=== PATIENT | female | born 1950 | race Caucasian/White ===

== ENCOUNTER 2018-11-07 15:21 | Inpatient (IN) | payer OTHER ==
[~2018-11-07] VITALS: Ht 160 cm; Wt 75.4 kg
[~2018-11-07 15:21] MED LIST: ACIDOPHILUS1 EAC3 PO; AMARYL4 MG PO; ANTACID500 MG PO; AZO1 EACH MC; DAPSONE25 MG PO; DIFLUCAN150 M1 PO; LANTUS SUBQ; NEXIUM40 MG PO; NORCO 5-325 TA1 EACH PO; PENICILLIN V P500 MG PO; PROTONIX40 M2 PO; TRAMADOL100 MG PO; ZESTRIL5 MG PO; ZOFRAN ODT4 MG PO
[2018-11-07 15:22] VITALS: BP 142/88
[2018-11-07 16:25] LABS: ABSOLUTE NEUTROPHILS 9.5 thou/uL (1.4-8.2); EOSINOPHILS 7.2 % (0.0-3.0); HEMATOCRIT 30.7 % (37.0-47.0); HEMOGLOBIN 10.3 gm/dL (12.0-15.0); LYMPHOCYTES 17.5 % (24.0-44.0); MCH 28.7 pg (26.0-34.0); MCHC 33.5 g/dL (28.0-37.0); MCV 85.8 fL (80.0-100.0); MONOCYTES 5.3 % (1.0-8.0); PLATELET COUNT 338 thou/uL (150-400); RBC 3.58 mil/uL (4.20-5.00); WBC 13.8 thou/uL (4.0-11.0)
[2018-11-07 16:36] LABS: ANION GAP 11 mmol/L (7-16); BUN 18 mg/dL (7-18); CALCIUM 8.5 mg/dL (8.5-10.1); CHLORIDE 98 mmol/L (98-107); CO2 27 mmol/L (21-32); CREATININE 1.4 mg/dL (0.6-1.0); GLUCOSE 302 mg/dL (74-106); POTASSIUM 3.4 mmol/L (3.5-5.1); SODIUM 136 mmol/L (136-145)
[2018-11-07 16:39] LABS: APTT 25.9 Seconds (24.5-32.8); PROTIME 9.9 Seconds (9.3-11.4)
[2018-11-07 16:42] LABS: ALBUMIN 3.6 g/dL (3.4-5.0); SGOT 19 U/L (15-37); SGPT 20 U/L (30-65); TOTAL BILIRUBIN 0.2 mg/dL (<0.1-1.0); TROPONIN-I <0.06 ng/mL (<0.06)
--- NOTE | 2018-11-07 16:45 | EKG ---
[place] [place] [address] ELECTROCARDIOGRAM REPORT Name: CHRISTIANO HIGGINS THERON Room #: REG [facility]#: [id number] ������������������ Admission: 11/07/18 ������������������ Attend Phys: Discharge: ������������������ Date of : 50 Report #: [id number] ����������������������������������������������������������������� [id number] THIS REPORT FOR: //name// [facility] ED Test Date: 2018-11-07 Test Time: 16:14:34 Pat Name: CHRISTIANO HIGGINS Department: Room: Gender: F Butcher Fish: ADDIE : 1950 Requested By: David Gaston Order Number: [id number] MD: Sergio Manzano Measurements Intervals [place] Rate: 103 P: 56 DE: 126 QRS: 30 QRSD: 96 T: 66 QT: 342 QTc: 448 Interpretive Statements Sinus tachycardia Low voltage, precordial leads Nonspecific T abnormalities, lateral leads Baseline wander in lead(s) I,aVL Compared to ECG 03/22/2012 10:28:23 Low QRS voltage now present T-wave abnormality now present Sinus rhythm no longer present Electronically Signed On 11-07-2018 16:45:29 CDT by Sergio Manzano [email or web address] ��������������������������������������������� <ELECTRONICALLY SIGNED> ���������������������������������������� By: Sergio Manzano MD ��������������������������������������������� 11/07/18 1645 1614 1614 Sergio Manzano MD /EPI
[2018-11-07 16:50] LABS: URINE BILIRUBIN NEGATIVE (Negative); URINE BLOOD NEGATIVE (Negative); URINE CLARITY CLEAR; URINE COLOR YELLOW; URINE GLUCOSE-RANDOM* 3+ (Negative); URINE KETONES NEGATIVE (Negative); URINE LEUKOCYTES-REFLEX NEGATIVE (Negative); URINE NITRITE-REFLEX NEGATIVE (Negative); URINE PROTEIN (DIPSTICK) TRACE (Negative); URINE UROBILINOGEN 0.2 E.U./dl (0.2-1.0)
[2018-11-07 16:53] LABS: AMP/METHAMP Negative (Negative); BARBITURATES Negative (Negative); BENZODIAZEPINES Negative (Negative); COCAINE Negative (Negative); METHADONE Negative (Negative); OPIATES Negative (Negative); PCP Negative (Negative)
[2018-11-07 18:17] LABS: CSF GLUCOSE 147 mg/dL (40-70); CSF PROTEIN 51 mg/dL (15-45)
[2018-11-07 18:39] LABS: CSF CLARITY CLEAR; CSF COLOR COLORLESS; CSF RBC 1 /mm3; CSF WBC 0 /mm3 (0-10); VOLUME 8 ml
[2018-11-07 19:02] LABS: BE(vivo) -1.2 mmol/L (-2 to +3); HCO3 24.9 mmol/L (22.0-26.0); PO2 VENOUS 27.4 mmHg (35.0-45.0)
[2018-11-07 21:38] VITALS: BP 144/75
--- NOTE | 2018-11-07 22:00 | NUR ---
Pt transported to MRI by me and RT. She was on propofol gtt for sedation. She woke up ,restless and agitated easily w/o any sedation. BP were elevated, HR became very tachy but remains in ST. Unable to take IV pump in MRI area. She was given total of 30 cc of propofol IVP during MRI procedure. She is well norma and stable during procedure. Tx to ICU with stable conditions.
[2018-11-07 22:37] LABS: BE(vivo) -2.2 mmol/L (-2 to +3); HCO3 21.7 mmol/L (22.0-26.0); PCO2 33.8 mmHg (35.0-45.0); PO2 316.6 mmHg (80.0-100.0); pH 7.426 (7.360-7.450); sO2 99.7 % (92.0-98.0)
--- NOTE | 2018-11-07 22:40 | NUR ---
VASCULAR ACCESS TEAM CONSULTED FOR CENTRAL LINE PLACEMENT. PT'S LABS,MEDS,HISTORY,ORDER AND CONSENT VERIFIED. PT ON VENT. PT DRAPED FOR MAX BARRIER PRECAUTIONS. LIJ WAS WIDELY PATENT WITH USG, 1% LIDOCAINE GIVEN SQ. 25CM 6FR JACC INSERTED IN LIJ, 7 CM EXTERNAL WITH BRISK BR. LINE SECURED. STAT CXR DONE
[2018-11-07 22:48] LABS: CALCIUM 7.9 mg/dL (8.5-10.1); CREATININE 1.1 mg/dL (0.6-1.0); POTASSIUM 3.5 mmol/L (3.5-5.1)
--- NOTE | 2018-11-07 22:56 | NUR ---
CXR CONFIRMED PLACEMENT RELEASED FOR IMMEDIATE USE PER PROTOCOL TO SHRUTHI ANDINO
[2018-11-07 23:07] VITALS: BP 135/76
[2018-11-07 23:09] LABS: TSH 0.872 uIU/mL (0.358-3.740)
[2018-11-08] VITALS (31 sets, daily range): BP systolic 106–181; BP diastolic 56–90
[2018-11-08 04:02] LABS: HEMATOCRIT 27.1 % (37.0-47.0); HEMOGLOBIN 8.8 gm/dL (12.0-15.0); MCH 28.1 pg (26.0-34.0); MCHC 32.4 g/dL (28.0-37.0); MCV 86.6 fL (80.0-100.0); RBC 3.13 mil/uL (4.20-5.00); RDW 13.8 % (10.5-14.5); WBC 11.8 thou/uL (4.0-11.0)
[2018-11-08 04:08] LABS: CALCIUM 8.1 mg/dL (8.5-10.1); CREATININE 1.1 mg/dL (0.6-1.0); MAGNESIUM 1.2 mg/dL (1.8-2.4); POTASSIUM 3.5 mmol/L (3.5-5.1)
[2018-11-08 05:15] LABS: BE(vivo) -3.7 mmol/L (-2 to +3); HCO3 20.1 mmol/L (22.0-26.0); PCO2 31.8 mmHg (35.0-45.0); PO2 113.3 mmHg (80.0-100.0); pH 7.419 (7.360-7.450); sO2 98.3 % (92.0-98.0)
--- NOTE | 2018-11-08 05:34 | NUR ---
PATIENT ARRIVED TO THE FLOOR FROM THE ED AROUND 2144. PATIENT IS ON THE VENTILATOR AND IS SEDATED. SEPSIS PROTOCOL INITIATED AND PATIENT PLACED ON INSULIN GTT. VS REMAINED STABLE THROUGHOUT THIS SHIFT AND NO DISTRESS NOTED.
[2018-11-08 13:08] LABS: BE(vivo) -2.5 mmol/L (-2 to +3); HCO3 22.2 mmol/L (22.0-26.0); PCO2 38.1 mmHg (35.0-45.0); PO2 148.3 mmHg (80.0-100.0); pH 7.384 (7.360-7.450); sO2 98.9 % (92.0-98.0)
--- NOTE | 2018-11-08 19:30 | NUR ---
SHIFT SUMMARY: PT PROGRESSED TODAY. SEE ASSESSMENTS FOR DETAILS. CPAP TRIAL PERFORMED, DR. HOFFMAN NOTIFIED OF ABG'S, EXTUBATED, PLACED ON 3L/NC- ALL WELL TOLERATED. PT INTERMITTENTLY ANXIOUS, RESTLESS, IRRITABLE, FRUSTRATED AND HAD A PANIC ATTACK. PT STUTTERING. WITH COAXING PT SYMPTOMS RESOLVED, THEN PT SPEAKING CLEARLY. SLEEPING WHEN UNDISTURBED. ST, PT REMOVED O2 AND TOLERATED ROOM AIR, MEI WITH LARGE AMOUNT URINE OUTPUT. SEVERAL FAMILY MEMBERS ROTATED IN AND OUT OF ROOM, UPDATED FAMILY CARES PROVIDED.
[2018-11-09] VITALS (19 sets, daily range): BP systolic 102–167; BP diastolic 59–86
[2018-11-09 02:12] LABS: HEMATOCRIT 28.2 % (37.0-47.0); HEMOGLOBIN 9.3 gm/dL (12.0-15.0); MCH 28.6 pg (26.0-34.0); MCV 86.7 fL (80.0-100.0); RBC 3.25 mil/uL (4.20-5.00); RDW 14.4 % (10.5-14.5); WBC 12.9 thou/uL (4.0-11.0)
[2018-11-09 02:25] LABS: CALCIUM 8.4 mg/dL (8.5-10.1); CREATININE 1.2 mg/dL (0.6-1.0); MAGNESIUM 2.1 mg/dL (1.8-2.4); POTASSIUM 3.8 mmol/L (3.5-5.1)
[2018-11-09 02:30] LABS: ALBUMIN 3.1 g/dL (3.4-5.0); CALCIUM 8.2 mg/dL (8.5-10.1); CREATININE 1.2 mg/dL (0.6-1.0); PHOSPHORUS 3.9 mg/dL (2.5-4.9); POTASSIUM 3.8 mmol/L (3.5-5.1)
--- NOTE | 2018-11-09 05:50 | NUR ---
ASSESSMENT: PT REMAIN ALERT AND ORIENT TIMES THREE. DOES GET RESTLESS FROM TIME TO TIME IN WHICH SHE BEGIN SPEAKING IN A LOW TONE, STUTTERS AND DOES RECOGNIZE THAT SHE IS NOT BEING HERSELF. THEN SHORTLY AFTERWARDS, SHE'S SEEMS BACK TO HERSELF. VSS, AFEBRILE. SR PER MONITOR. DENIES PAIN. DID HAVE ATIVAN EARLIER TIMES ONE. WHICH WAS EFFECTIVE AND PT DID SLEEP. HER MAIN CONCERN WAS THAT SHE WANTS TO SLEEP. AT TIMES SHE IS VERY RESTLESS, THRASHING IN THE BED, PULLING AT TUBING NOT TO PULL THINGS OUT BUT IN ATTEMPTS TO FIND REMOTE OR MOVE HER PILLOW. DR. MCCRACKEN WAS AT THE BEDSIDE EARLIER AND STATE THAT HE WOULD CONTINUE WITH ACYCLOVIR AND MEINIGITIS HAS BEEN RULED OUT. PENDING BLOOD CULTURES/CSF RESULTS. UO ADEQUATE, NO BM. LEFT IJ PATENT. SPUTUM CULTURE PENDING. SLOW PROGRESS TOWARDS DC GOALS. WILL CONTINUE TO MONITOR.
--- NOTE | 2018-11-09 16:05 | NUR ---
SHIFT SUMMARY: PT AWAKE AT SHIFT CHANGE, RESTLESS IN BED, REPOSITIONING FROM SIDE TO SIDE, LAYING ON HER STOMACH, PLACING HEAD AT FOOT OF BED. THEN UP IN CHAIR PER HER REQUEST. WITHIN MINUTES PT BECAME RESTLESS, IMPULSIVE, NOT WILLING TO REMAIN IN CHAIR, WANTING TO STAND, WALK AND GET BACK IN BED. RETURNED TO BED, STILL STILL RESTLESS, IMPULSIVE AND TRYING TO REMEMBER THE MED SHE TAKES WHEN SHE FEELS THIS WAY WHEN AT HOME. PER DISCUSSION WITH RN, IT WAS DETERMINED SHE NEEDED HER TRAMADOL. CALL PLACED TO DR. DAVIS TO REORDER HER HOME MEDS INCLUDING TRAMADOL. PT STATES SHE TAKES TRAMADOL FOR LOWER EXTREMITY NEUROPATHY, RESTLESS LEG SYNDROME AND HER CHRONIC BACK PAIN. "THE TRAMADOL TAKES CARE OF ALL THREE", SHE FURTHER STATED. WITHIN ONE HOUR OF TRAMADOL ADMINISTRATION, PT COOPERATIVE, CALMER, LESS IMPULSIVE, STATES SHE IS THINKING CLEARER THAN BEFORE (BUT NOT BACK TO HER NORMAL) AND GENERALLY REMAINING IN HER CHAIR. SR/ST, ROOM AIR, RESP EVEN AND UNLABORED, CONSUMED HER MEALS, MEI WITH ADEQUAATE URINE OUTPUT. MEI DC'D PER ORDER, THEN VOIDED X 1 (25CC) 20 MIN LATER. SPOUSE AND FAMILY MEMBERS IN ROOM PROVIDING SUPPORT TO PT. REPORT GIVEN TO SINA KINSEY. PT TRANSFERRED TO TELE RM #[id number] PER WHEELCHAIR. WELL TOLERATED.
--- NOTE | 2018-11-09 16:29 | HC ---
[facility] [place] [address] [address] CONSULTATION Name: CHRISTIANO HIGGINS Room #: 352-P ADM IN M.R.#: [id number] Admission: 11/07/18 ������������������ Attend Phys: Adan Swan MD Discharge: ������������������ Date of : 50 Report #: [id number] THIS REPORT FOR: //name// CC: JENNY physician/PCP Adan Swan REFERRING PHYSICIAN: Dr. Swan. REASON FOR REFERRAL: Acute respiratory failure. HISTORY OF PRESENT ILLNESS: The patient is a 68-year-old white female who presented to the ED with confusion, slurred speech and facial droop. She was subsequently intubated for imaging studies. A pulmonary consultation was requested. According to the family, the patient has had trouble with encephalopathy in the past when she was diagnosed with urinary tract infection. The patient is a retired nurse. She was in her usual state of health until yesterday when she became acutely confused. She then developed slurred speech, facial droop. She was then promptly brought to the Emergency Room within about 30 minutes. When she was seen in the ER, she was also febrile with temperature of 101.3 degrees Fahrenheit. Initially, the patient was felt to have CVA and Neurology were consulted. However, because of the febrile illness there were concerns for possible meningitis or encephalitis. The patient then underwent LP. Her lumbar puncture studies were grossly unremarkable. The patient then was taken to the MRI. Prior to that encephalopathy worsened where she had to be intubated to control the airway. The patient was then brought to the ICU. Since the arrival to the ICU, she has remained relatively stable. So far workup has been negative. This morning, she is awake, alert, tolerating CPAP trial. She was extubated. She is doing fairly well. She is following commands. PAST MEDICAL HISTORY: As mentioned above, history of encephalopathy associated urinary tract infection/sepsis, diabetes mellitus type 2, gastroesophageal reflux disease, hypertension, breast cancer, status post left mastectomy in 1988, past history of cervical spine surgery in 2010, tonsillectomy, right carpal tunnel surgery. ALLERGIES: NAPROXEN, WHICH CAUSES NAUSEA AND VOMITING, LATEX GLOVES, REACTIONS NOT SPECIFIED. HOME MEDICATIONS: Include recent administration of Pen-Vee K, hydrocodone, Zofran, Diflucan. She is also on Lantus, Amaryl, dapsone, calcium supplements, [address] [address] CONSULTATION Name: CHRISTIANO HIGGINS Room #: 352-P [facility] ..#: [id number] Admission: 11/07/18 ������������������ Attend Phys: Adan Swan MD Discharge: ������������������ Date of : 50 Report #: [id number] tramadol. FAMILY HISTORY: Noncontributory. SOCIAL HISTORY: The patient has smoked for many years, but quit several years ago. She is . Denies any alcohol use. REVIEW OF SYSTEMS: Deferred as the patient is mildly sedated. PHYSICAL EXAMINATION: GENERAL: She is awake, alert, following commands. She was just extubated. VITAL SIGNS: Temperature is 98.6 degrees Fahrenheit, yesterday temperature maximum was 101.8 degrees Fahrenheit, pulse is 90, respiratory rate is 16, blood pressure 140/78 mmHg, saturation 100%. HEENT: Normocephalic, atraumatic. NECK: Supple, without lymphadenopathy or thyromegaly. CHEST: Breath sounds are clear anteriorly without any rales or wheezes. CARDIOVASCULAR: Normal S1, S2. There are no murmurs or gallop. There is no JVD. There is no carotid bruit. Pulses are 2+/4+ bilaterally. ABDOMEN: Soft, nontender, no organomegaly or masses felt. GENITOURINARY: Deferred. RECTAL: Deferred. EXTREMITIES: There is no edema, cyanosis or clubbing. LABORATORY DATA: Portable chest x-ray is clear. ET tube is above the aleshia at approximately 3 cm. No infiltrates seen. CT head was unremarkable except for age-related findings. Urine drug screen was negative. Lactic acid is 3.8. CSF glucose was 147, protein was 51. Cell count was no WBC's, 1 RBC. Electrolytes on admission showed a creatinine of 1.4, sodium 136. The rest within normal limits. Liver enzymes are grossly unremarkable. WBC 13,900 without bandemia, lymphopenia is noted. Of note, eosinophil was 7.2%. Arterial blood gas revealed pH 7.38, pCO2 of 38, pO2 of 148. Cultures so far negative. IMPRESSION: 1. Acute febrile illness, encephalopathy in this 68-year-old white female. Suspect infectious source along with sepsis syndrome. Source of this infection is not clear at this time. Note the urinalysis was grossly unremarkable. 2. Acute hypoxic respiratory failure due to encephalopathy. Stable, post extubation. 3. Remote history of tobacco use. No history of chronic lung disease. 4. Acute kidney injury, likely related to sepsis. 5. Hypertension. 6. History of breast cancer, status post left mastectomy RECOMMENDATION: Overall, the patient did fairly well on CPAP trial. She was subsequently extubated. Saturation is adequate, keep saturation around 92%. [address] [address] CONSULTATION Name: CHRISTIANO HIGGINS Room #: 352-P ADM IN .R.#: [id number] Admission: 11/07/18 ������������������ Attend Phys: Adan Swan MD Discharge: ������������������ Date of : 50 Report #: [id number] Incentive spirometry will be added. Bronchodilators will be helpful given history of tobacco use. Agree with ongoing workup for febrile illness. DVT and GI prophylaxis recommended. Thank you for the consultation. ��������������������������������������������� <ELECTRONICALLY SIGNED> ���������������������������������������� By: John Arredondo MD ��������������������������������������������� 11/09/18 1629 1538 1321 John Arredondo MD /nt
--- NOTE | 2018-11-09 19:41 | NUR ---
PATIENT ADMITTED TO ROOM FROM ICU. SHE IS ALERT ORIENTED X4 WITH PERIODS OF CONFUSION. SHE WAS NOTED ATTEMPTING OT AMBULATE TO BATHROOM WITHOUT ASSISTANCE. REEDUCATED ON NEED TO CALL STAFF.
--- NOTE | 2018-11-10 00:25 | NUR ---
Assumed care at 1845. Pt restin in bed. AOX4 forgetfull at times. On Room air. Been ambulating to bathroom with x1 assist, walker and gait belt. Has a scheduled MRI/MRA of the spine today. L IJ dressing CDI. No identified needs at the moment. Call light within reach. Will continue to monitor.
[2018-11-10 04:55] VITALS: BP 173/91
[2018-11-10 05:17] LABS: HEMATOCRIT 26.1 % (37.0-47.0); HEMOGLOBIN 8.7 gm/dL (12.0-15.0); MCHC 33.2 g/dL (28.0-37.0); MCV 87.3 fL (80.0-100.0); RBC 2.99 mil/uL (4.20-5.00); WBC 10.2 thou/uL (4.0-11.0)
[2018-11-10 05:33] LABS: CALCIUM 8.3 mg/dL (8.5-10.1); CREATININE 1.1 mg/dL (0.6-1.0); POTASSIUM 3.9 mmol/L (3.5-5.1); TOTAL BILIRUBIN 0.2 mg/dL (<0.1-1.0); TOTAL PROTEIN 6.9 g/dL (6.4-8.2)
[2018-11-10 07:27] VITALS: BP 165/93
--- NOTE | 2018-11-10 09:31 | HC ---
[facility] [place] [address] CONSULTATION Name: CHRISTIANO HIGGINS Room #: 352-P ADM IN M.R.#: [id number] Admission: 11/07/18 ������������������ Attend Phys: Adan Swan MD Discharge: ������������������ Date of : 50 Report #: [id number] THIS REPORT FOR: //name// CC: JENNY physician/PCP Adan Swan DATE OF SERVICE: 11/07/2018 REASON FOR CONSULTATION: I was asked to evaluate concerning possible meningitis. HISTORY OF PRESENT ILLNESS: The patient is a 68-year-old who presented to the Emergency Room with acute onset of confusion, slurred speech and facial droop. Onset of symptoms was 30 minutes before arrival. She had been previously having a meal with her sister prior to her presentation. 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 I do not have any further information regarding this. She is a diabetic. Takes tramadol for pain and is on dapsone for unclear reasons. Following presentation to the Emergency Room, she had temperature of 38.8, hemodynamically was stable, though she is tachycardic. She was confused. Initial CT scan was clear. Chest x-ray was clear. Oxygen requirements were at 2 liters. She has had no travel. She, by history in the Emergency Room, has had no cardiopulmonary complaints. No visual changes. No GI or complaints. By the time I was able to evaluate her, she was intubated and sedated. Nursing notes no seizure activity. ALLERGIES: None known. MEDICATIONS: As noted on her MAR including insulin, Amaryl, dapsone, tramadol. She was given vancomycin, ampicillin, ceftriaxone, acyclovir and dexamethasone in the Emergency Room. PAST MEDICAL HISTORY: Frequent falls and ataxia, gastroesophageal reflux, diabetes, chronic kidney disease, celiac disease, breast cancer, left mastectomy, cervical spine surgery, cholecystectomy, right carpal tunnel surgery, tonsillectomy. FAMILY HISTORY: Noncontributory. SOCIAL HISTORY: Does drink alcohol. Nonsmoker. REVIEW OF SYSTEMS: Unable to gain any more information other than what is described above as a 10-point review. PHYSICAL EXAMINATION: [facility] [address] [place] [address] CONSULTATION Name: CHRISTIANO HIGGINS Room #: 352-P [facility] IN .R.#: [id number] Admission: 11/07/18 ������������������ Attend Phys: Adan Swan MD Discharge: ������������������ Date of : 50 Report #: [id number] VITAL SIGNS: Temperature was 38.8, heart rate 121, respiratory rate 20, blood pressure 142/80. SKIN: Without rash or decubitus. No palpable adenopathy. NECK: Supple. HEENT: Pupils were equal, round and reactive to light. Sclerae was nonicteric. Mouth was intubated. No lesions identified. LUNGS: Clear. HEART: Regular, without murmur, gallop or rub. It was tachycardic. ABDOMEN: Soft, obese, nontender. No hepatosplenomegaly or mass. GENITOURINARY: She was incontinent of urine. EXTREMITIES: Without cyanosis, clubbing or edema. She did move all extremities. Unable to assess mood. LABORATORY STUDIES: Chest x-ray was clear. CT of the head negative. CSF examination: Glucose 147, protein 51, 0 WBCs, 1 RBC, lactate 3.8. Drug screen negative. Urinalysis negative. Sodium 136, potassium 3.4, bicarbonate 27, creatinine 1.4. Liver function test normal. Blood glucose 352. Troponin negative. Procalcitonin negative. Hemoglobin 10.3, WBC 13.8, platelet count 338,000. Differential was unremarkable. Blood, sputum culture pending. MRI scan being done currently. IMPRESSION: Acute encephalopathy with dysarthria, low-grade fever, leukocytosis in the setting of diabetes, chronic kidney disease and baseline ataxia. Thus far, source of infection is not evident. She does have fever along with mild leukocytosis and a lactate of 3.8; however, her procalcitonin was normal and no evidence of pulmonary, GI or infection at this point. Still possible we are dealing with acute stroke and aspiration, although chest x-ray was clear and on intubation did not find any increased secretions. Central fever also considered. Viral etiology or occult bacteremia considered. RECOMMENDATIONS: We will continue ceftriaxone and acyclovir until further information back from an MRI scan. Check MRI scan, serial laboratory studies, viral respiratory panel. The patient will be monitored in the Intensive Care Unit. Adjustments in her medications will be done following further information from her studies. ��������������������������������������������� <ELECTRONICALLY SIGNED> ���������������������������������������� By: Abelardo Escamilla MD ��������������������������������������������� 11/10/18 0931 31 1543 Abelardo Escamilla MD /nt
[2018-11-10 11:18] VITALS: BP 150/88
--- NOTE | 2018-11-10 12:04 | HC ---
[facility] [place] [address] [address] CONSULTATION Name: CHRISTIANO HIGGINS Room #: 352-P ADM IN M.R.#: [id number] Admission: 11/07/18 ������������������ Attend Phys: Adan Swan MD Discharge: ������������������ Date of : 50 Report #: [id number] THIS REPORT FOR: //name// CC: JENNY physician/PCP Adan Swan DATE OF SERVICE: 11/07/2018 HISTORY OF PRESENT ILLNESS: This is a 68-year-old female patient who was evaluated by me in the Emergency Room. The patient usually lives with her . He is not here and there are two family members here. As I understand, the patient was with her sister the whole day. She was fine around 10:00. The sister told me that she initially noticed that the patient had some speech difficulty around 01:30, but then, they have also given the different times in that regard. She also has cognitive impairment that time. Her speech became somewhat better, but she continued to have severe agitation. She is able to talk. She is very delusional. She does not follow any commands. She moves all four extremities, but she is constantly agitated. At one time, somebody has noticed some facial weakness, but it is not clear, which side it was and now that is not there. The symptoms are rather sudden in onset around 01:30 p.m. today. REVIEW OF SYSTEMS: Positive for multiple problems. She is a diabetic. She had a prior cervical spine surgery. There is no documented hypoglycemia. The blood sugar here in the Emergency Room is more than 300. Her baseline status is that she is able to drive and she is cognitively intact. She had a prior breast cancer. She had a carpal tunnel syndrome surgery, the best sister and family knows she has not been asked to start any medication recently. MEDICATIONS: List here does include tramadol. PHYSICAL EXAMINATION: I could not examine the patient except she talks, but she does not follow any commands, but she has a speech. She is extremely agitated, has not laid still for us to do anything and she is very delusional also. LABORATORY DATA: Her white count is elevated at 13.8. Her kidney problem is there, but she has a known renal problem. Her GFR is only 37. IMPRESSION: This is a very difficult case to decide what to do. She has this symptom, which appeared to be acute in onset. That will raise the possibility of stroke. Timing is not clear, but the sister indicates that it was around 01:30. The other problem is her white count is up and she is running temperature. That raise the possibility of MOGUL OPERATOR infection, but the atypical feature is that the infections usually does not come that fast. [facility] [address] [place] [address] CONSULTATION Name: CHRISTIANO HIGGINS THERON Room #: 352-P ADM IN M.R.#: [id number] Admission: 11/07/18 ������������������ Attend Phys: Adan Swan MD Discharge: ������������������ Date of : 50 Report #: [id number] She was able to do the CT scan of the head and that does not show any acute abnormality. She does have chronic changes on the CT, but the family indicated that she was cognitively intact before this happened. I discussed the situation with the patient and Emergency Room physician. I discussed with him that because of the acute onset, the possibility of stroke still need to be considered, but I cannot confirm that. The other diagnosis is MOGUL OPERATOR infection. The atypical feature is it usually does not come that fast, but the patient has increased white count as well as temperature. The treatment of the stroke is going to be problem if a spinal tap is done and I discussed that with the family. If the patient's symptoms started at 01:30, she is outside the window for a TPA. She is outside the window for TPA for 3 hours and it is getting there. It is probably outside the window for 4-1/2 hours because it will be difficult to arrange that. We are facing further problem because her kidney is a problem. She has a known kidney disease according to the family and her GFR is only 37. We were going to go ahead and do CT angiogram of the head and neck with perfusion to see if we can localize any perfusion deficit. The problem with that is that can hurt her kidneys and it may not even give us the answer. The other option was to take her down for a stat MRI. The problem with that is the family says she is claustrophobic and have difficult time doing an MRI even usual condition and at this time, we cannot even do the MRI because she is so agitated that she will not even lay still for even few seconds. The family referred me to the patient's for more questions about the medical history, but the they tell me will not be available for another half an hour. I told them I will stay in the hospital and that they should page me as soon as he comes. It is an extremely difficult situation. I am still concerned about the stroke in this patient, but I cannot rule out MOGUL OPERATOR infection either because of the above. I do not know what to do as well as stroke is concerned and even if it is a stroke. She is so agitated and so much thrashing around that the chances of running, we cannot make her even still for a few seconds and the chances of getting into complication from TPA is going to be high especially if they have to intubate him and they may very well have to intubate him, especially if she keeps being so agitated before we can get any further workup done. If she is intubated, then we can get an MRI done, but with this kind of history and it is almost 4-1/2 hours since the onset of the symptoms, I am not sure what can we do and the best will be to stay conservative in this patient, but I would like to get the testing done if possible and I will go back and try to talk to the patient's and see if we can reach the and make a plan and we will continue to make a better [facility] [address] [place] [address] CONSULTATION Name: CHRISTIANO HIGGINS THERON Room #: 352-P ADM IN M.R.#: [id number] Admission: 11/07/18 ������������������ Attend Phys: Adan Swan MD Discharge: ������������������ Date of : 50 Report #: [id number] effort on timing in this patient. We will dictate an addendum from talk to the and able to make a more definite plan. ��������������������������������������������� <ELECTRONICALLY SIGNED> ���������������������������������������� By: Conrad Rao MD ��������������������������������������������� 11/10/18 1204 1751 1432 Conrad Rao MD /nt
--- NOTE | 2018-11-10 12:05 | EEG ---
[facility] [place] [address] ELECTROENCEPHALOGRAM Name: CHRISTIANO HIGGINS Room #: 352-P ADM IN M.R.#: [id number] ������������������ Admission: 11/07/18 ������������������ Attend Phys: Adan Swan MD Discharge: ������������������ Date of : 50 Report #: [id number] ����������������������������������������������������������������� [id number] THIS REPORT FOR: //name// CC: JENNY physician/PCP Adan Swan DATE OF SERVICE: 11/07/2018 ELECTROENCEPHALOGRAM REPORT TECHNIQUE: This patient's EEG was done by placing the electrodes by standard 10-20 system of electrode placement. Both referential and sequential montages were used for recording. Background activity in this patient's EEG goes up to about 9 Hz and 30 microvolt. It is intermixed with theta range slowing on both sides. Photic stimulation is unremarkable. No active epileptiform activity was noticed. IMPRESSION: This patient's EEG demonstrates intermixed theta range slowing on both sides. That is a nonspecific abnormality which can occur with encephalopathy, effect of psychotropic medication, dementia, etc. No active epileptiform activity was noticed during this record. Alpha coma cannot be excluded. ���������������������������������������� <ELECTRONICALLY SIGNED> ���������������������������������������� By: Conrad Rao MD ��������������������������������������������� 11/10/18 1205 0825 1031 Conrad Rao MD /nt
[2018-11-10 14:26] VITALS: BP 150/88
--- NOTE | 2018-11-10 14:34 | NUR ---
INITIAL ASSESSMENT/DISCHARGE NOTE: Received consult. JACKIE reviewed chart and spoke with nursing and attending physician. Pt was admitted from home due to altered mental status. Pt was transferred to from ICU and is medically stable for discharge home today with HH services. JACKIE met with pt, spouse and family at bedside. Introduced role of SW. Pt is alert/orientated. Pt states that she and her spouse live in a house in [place]. Prior to admission, pt was independent with ADLs. Pt does have a cane and walker to use at home. JACKIE discussed need for HH services and provided options for HH agencies. Pt requests to have referral sent to [facility], as her is currently on service with [facility].. SW confirmed pt's home address and phone number. Pt's PCP is Dr. Francisco Wyatt at [facility]. supply planner to fax info and orders to [facility]. Contact info for [facility] placed in pt's discharge summary. SW provided pt with info for [facility] per her request. Pt's family to provide transportation home. No additional SW needs identified at this time, but is available to assist should needs arise.
--- NOTE | 2018-11-10 14:42 | NUR ---
rachel sent Home Health referral to [facility] along with dc paperwork, dp sent text to Yahaira at [facility] letting her know and that patient carolina Smith as her nurse, also that [facility] with [facility].
--- NOTE | 2018-11-10 15:01 | NUR ---
assumed patient care at 0700. a/o x4. restless in am. moved from chair to frances. getting better when fanily are here. progressing towards poc golas. dc to home with hh.
[2018-11-10 15:09] LABS: CSF VDRL Non Reactive (Non Rea:<1:1)
== END 2018-11-10 15:12 | disposition home health service (06) | DRG 208 ==
LOC: ER 15:21 → 3W 18:13 → EROBS 18:13 → ICU 19:58 → 3W 11-09 16:26
PROVIDERS: Emergency Medicine; Hospitalist; Internal Medicine Pulmonary Disease; Psychiatry & Neurology Neuromuscular Medicine; Specialist; ADMIT Internal Medicine
PROC: 0BH17EZ Insertion of Endotracheal Airway into Trachea, Via Natural or Artificial Opening (ICD-10-PCS; principal; 2018-11-07)
PROC: 009U3ZX Drainage of Spinal Canal, Percutaneous Approach, Diagnostic (ICD-10-PCS; principal; 2018-11-07)
PROC: 5A1935Z Respiratory Ventilation, Less than 24 Consecutive Hours (ICD-10-PCS; 2018-11-08)
DX: J96.01 Acute respiratory failure with hypoxia (principal); G93.40 Encephalopathy, unspecified; N17.9 Acute kidney failure, unspecified; N18.4 Chronic kidney disease, stage 4 (severe); K21.9 Gastro-esophageal reflux disease without esophagitis; I12.9 Hypertensive chronic kidney disease with stage 1 through stage 4 chronic kidney disease, or unspecified chronic kidney disease; E11.22 Type 2 diabetes mellitus with diabetic chronic kidney disease; N18.9 Chronic kidney disease, unspecified; R26.9 Unspecified abnormalities of gait and mobility; R47.1 Dysarthria and anarthria; G25.81 Restless legs syndrome; R27.0 Ataxia, unspecified; E83.42 Hypomagnesemia; Z91.81 History of falling; Z87.891 Personal history of nicotine dependence; Z85.3 Personal history of malignant neoplasm of breast; Z90.12 Acquired absence of left breast and nipple; Z90.49 Acquired absence of other specified parts of digestive tract; Z79.4 Long term (current) use of insulin; Z79.899 Other long term (current) drug therapy; Z88.8 Allergy status to other drugs, medicaments and biological substances; Z91.040 Latex allergy status
CPT/HCPCS: 10078; 10879

== ENCOUNTER 2019-07-27 13:33 | Inpatient (IN) | payer OTHER ==
[~2019-07-27] VITALS: Ht 160 cm; Wt 68.0 kg
[2019-07-27 13:34] VITALS: BP 190/110
[2019-07-27 14:53] LABS: ABSOLUTE NEUTROPHILS 9.6 thou/uL (1.4-8.2); BASOPHILS 0.5 % (0.0-2.0); EOSINOPHILS 0.2 % (0.0-3.0); HEMATOCRIT 33.3 % (37.0-47.0); LYMPHOCYTES 9.5 % (24.0-44.0); MCH 30.8 pg (26.0-34.0); MCV 93.5 fL (80.0-100.0); MONOCYTES 5.2 % (1.0-8.0); PLATELET COUNT 258 thou/uL (150-400); POLYS 84.6 % (36.0-66.0); RBC 3.56 mil/uL (4.20-5.00); WBC 11.4 thou/uL (4.0-11.0)
[2019-07-27 15:04] LABS: ANION GAP 11 mmol/L (7-16); BUN 30 mg/dL (7-18); CALCIUM 10.4 mg/dL (8.5-10.1); CHLORIDE 110 mmol/L (98-107); CO2 25 mmol/L (21-32); CREATININE 1.3 mg/dL (0.6-1.0); GLUCOSE 200 mg/dL (74-106); POTASSIUM 5.3 mmol/L (3.5-5.1); SODIUM 146 mmol/L (136-145)
--- NOTE | 2019-07-27 15:07 | EKG ---
[address] [place] [address] ELECTROCARDIOGRAM REPORT Name: RONALDOCHRISTIANO Room #: [facility].#: [id number] Admission: Attend Phys: Discharge: Date of : 50 Report #: [id number] THIS REPORT FOR: //name// [facility] ED Test Date: 2019-07-27 Test Time: 13:46:12 Pat Name: CHRISTIANO HIGGINS Department: Room: Gender: F Capacity Analyst: KF : 1950 Requested By: Magda Jackson Order Number: [id number] MD: Josep Lane Measurements Intervals [place] Rate: 95 P: 69 MT: 133 QRS: 20 QRSD: 76 T: 51 QT: 329 QTc: 414 Interpretive Statements Sinus rhythm Low voltage, extremity and precordial leads Compared to ECG 11/07/2018 16:14:34 Sinus tachycardia no longer present T-wave abnormality no longer present Electronically Signed On 07-27-2019 15:07:16 CYTOPATHOLOGY TECHNOLOGIST by Josep Lane [email or web address] <ELECTRONICALLY SIGNED> By: Josep Lane MD 07/27/[address] MD /[place]
[2019-07-27 15:12] LABS: TROPONIN-I <0.06 ng/mL (<0.06)
[2019-07-27 16:22] VITALS: BP 155/83
[2019-07-27 16:39] VITALS: BP 155/83
[2019-07-27 17:04] VITALS: BP 146/77
[2019-07-27 17:50] LABS: CHOLESTEROL 113 mg/dL (<200); HDL CHOLESTEROL 38 mg/dL (>40); LDL CHOLESTEROL 56 mg/dL (<100); TRIGLYCERIDE 96 mg/dL (<150); VLDL 19 mg/dL (<40)
[2019-07-27 17:54] LABS: SERUM ASSESSMENT Clear
[2019-07-27] MEDS ORDERED: LANTUS SUBQ (18:06)
[2019-07-27] MEDS ORDERED: HUMALOG100 UNIT/1 SUBQ (18:07)
[2019-07-27] MEDS ORDERED: TYLENOL325 M1 PO (18:09)
[2019-07-27] MEDS ORDERED: NORCO 5-325 TA1 EAC1 PO (18:10)
[2019-07-27] MEDS ORDERED: CLOBETASOL PROP50 G1 TOP (18:14)
[2019-07-27 18:15] LABS: TSH 1.1 uIU/mL (0.358-3.740)
[2019-07-27] MEDS ORDERED: GLUCOTROL10 MG PO (18:15)
[2019-07-27] MEDS ORDERED: PROTONIX40 M2 PO (18:17)
[2019-07-27] MEDS ORDERED: DAPSONE25 MG PO (18:17)
[2019-07-27] MEDS ORDERED: TOPAMAX100 MG PO (18:18)
[2019-07-27] MEDS ORDERED: KEPPRA 500 MG500 MG PO (18:19)
[2019-07-27] MEDS ORDERED: VITAMIN D3 COM1 EACH PO (18:21)
[2019-07-27] MEDS ORDERED: PLAVIX 75 MG TA75 MG PO (18:22)
[2019-07-27] MEDS ORDERED: VITAMIN D3500 UNIT/5 PO (18:22)
[2019-07-27] MEDS ORDERED: CYMBALTA60 MG PO (18:23)
[2019-07-27] MEDS ORDERED: PRINIVIL10 MG PO (18:24)
[2019-07-27] MEDS ORDERED: FOLIC ACID1 MG PO (18:24)
[2019-07-27] MEDS ORDERED: LIPITOR 10 MG10 M1 PO (18:25)
[2019-07-27] MEDS ORDERED: LIPITOR40 MG PO (18:26)
--- NOTE | 2019-07-27 18:38 | NUR ---
Patient arrived approx. 1645 to room 362. Maintenance fluids started. Patient family at bedside to collect hx. Dr. Ames and Jessica, FITNESS/WELLNESS DIRECTOR were at bedside to assess patient and discuss plan with family. Tele monitor applied. Pt up to commode max assist. Pt mainly incontinent. Nurse aide to apply female external cath. Will continue to monitor.
[2019-07-27 19:37] LABS: URINE BILIRUBIN NEGATIVE (Negative); URINE BLOOD NEGATIVE (Negative); URINE CLARITY CLEAR; URINE COLOR YELLOW; URINE GLUCOSE-RANDOM* NEGATIVE (Negative); URINE KETONES NEGATIVE (Negative); URINE LEUKOCYTES-REFLEX TRACE (Negative); URINE NITRITE-REFLEX NEGATIVE (Negative); URINE PROTEIN (DIPSTICK) NEGATIVE (Negative); URINE SPECIFIC GRAVITY 1.025 (1.005-1.035)
[2019-07-27 19:45] VITALS: BP 132/54
[2019-07-27 20:01] VITALS: BP 138/68
[2019-07-28] VITALS (8 sets, daily range): BP systolic 125–169; BP diastolic 54–76
--- NOTE | 2019-07-28 06:43 | NUR ---
Pt. drowsy at beginning of shift then only oriented to person. Once she woke up fully she was able to state her name,mercedesay,she's at [facility] though she thinks it is December 2019. Pt. has been reoriented. C/o generalized pain when she woke. Pain med given with good relief. She has been repositioned for comfort. She rested well during the night. She requested for snack when she took her pain med and ate yoghurt.SCD's in place. Left arm sling in place. Bed alarm on. Will continue to monitor.
[2019-07-28 07:10] LABS: ABSOLUTE NEUTROPHILS 5.3 thou/uL (1.4-8.2); BASOPHILS 0.6 % (0.0-2.0); EOSINOPHILS 2.6 % (0.0-3.0); HEMATOCRIT 27.5 % (37.0-47.0); HEMOGLOBIN 9.2 gm/dL (12.0-15.0); LYMPHOCYTES 26.3 % (24.0-44.0); MCH 31.4 pg (26.0-34.0); MCHC 33.4 g/dL (28.0-37.0); MCV 94.2 fL (80.0-100.0); MONOCYTES 9.1 % (1.0-8.0); PLATELET COUNT 218 thou/uL (150-400); POLYS 61.4 % (36.0-66.0); RBC 2.92 mil/uL (4.20-5.00); RDW 13.8 % (10.5-14.5); WBC 8.6 thou/uL (4.0-11.0)
[2019-07-28 07:24] LABS: CALCIUM 9.4 mg/dL (8.5-10.1); CREATININE 1.1 mg/dL (0.6-1.0); MAGNESIUM 1.6 mg/dL (1.8-2.4); POTASSIUM 3.8 mmol/L (3.5-5.1)
--- NOTE | 2019-07-28 15:12 | NUR ---
INITIAL ASSESSMENT: Received consult. SW reviewed chart and spoke with nursing and attending physician. Pt was admitted from [facility] due to AMS. Neuro consulted. Pt with hx of CVA. Pt with left humerus fracture. SW met with pt and family at bedside. Introduced role of SW. Pt was resting during time of SW visit. Pt's family states that pt is currently in the skilled unit at [facility]. Family states that pt will most likely be staying at [facility] for custodial care. Pt was living at home with her son. Pt uses a walker. Plan is for pt to return to [facility] when medically stable. SW is following to assist as needed with discharge planning.
--- NOTE | 2019-07-28 17:44 | NUR ---
assumed care of pt at 0700. pt aox3 in no acute distress. complains of pain to fx shoulder, finding good relief with hydrocodone. incontinent of urine - ext female cath in place. vitals stable. no need for mri per neuro - abnormal ct findings due to recent stroke. pt seen by ortho - orders received. no plans for surgery at this time. small appetite. long acting insulin held this am - physician aware. will cont to monitor.
[2019-07-29 03:35] VITALS: BP 157/72
--- NOTE | 2019-07-29 03:48 | NUR ---
Pt. has been alert and oriented except to month and day. C/o hurting all over, hydrocodone given with good relief. She has been repositioned for comfort. Left arm immobilizer in place. SCD's on. Female ext. cath in place otherwise incontinent. SCD's in place. Making progress towards care plan goals.
[2019-07-29 07:20] VITALS: BP 132/63
[2019-07-29 11:43] VITALS: BP 147/76
--- NOTE | 2019-07-29 13:31 | NUR ---
DISCHARGE PLANNING. PATIENT ADMITTED FROM [facility]. PLAN IS FOR PATIENT TO DISCHARGE BACK TO [facility] ONCE MEDICALLY READY. PATIENT CLINICAL REFERRAL FAXED TO [facility], VERIFIED RECEIVED. CALL PLACED TO ADMISSIONS TO NOTIFY. UNABLE TO REACH ADMISSIONS STAFF AT THIS TIME. UNIT SW AWARE.
[2019-07-29] MEDS ORDERED: HYDROCODON-ACE1 EAC7 PO (13:46)
[2019-07-29] MEDS ORDERED: TOPAMAX 100 MG100 MG PO (13:46)
[2019-07-29] MEDS ORDERED: MOBIC7.5 MG PO (13:46)
--- NOTE | 2019-07-29 14:46 | NUR ---
SW reviewed chart and spoke with nursing and attending physician. Pt is progressing towards goals for discharge. information systems planner faxed clinical and therapy updates to [facility] earlier today. Facility submitted for insurance authorization today. Anticipate pt will discharge back to the facility in 1-2 days. SW met with pt at bedside to provide update. Pt is aware and agreeable with plan. Pt left voice message for pt's to provide update as well. SW updated attending physician. SW is following to assist as needed with discharge planning.
[2019-07-29 15:30] VITALS: BP 148/71
--- NOTE | 2019-07-29 17:21 | NUR ---
ASSUMED CARE OF PT AT 0700. PT AOX3, LETHARGIC, WITHDRAWN, BUT COOPERATIVE WITH CARE. SEEN BY OT AND PT. UP TO CHAIR FOR MEALS. PAIN CONTROLLED WITH CURRENT MED REGIMEN. VERY SMALL APPETITE. SUGARS TREATED CONSERVATIVELY DUE TO MINIMAL APPETITE. ANTICIPATE D/C TOMORROW TO LTC.
[2019-07-29 19:50] VITALS: BP 137/67
--- NOTE | 2019-07-30 00:30 | NUR ---
PATIENT ASSESSED AND IS ALERT X 2-3. SKIN WARM AND DRY. RESP EVEN AND UNLABORED. HAS LEFT SHOULDER IN IMMOBILIZER FROM FRACTURE. ELEVATED ON PILLOW. HAS GOOD COLOR IN FINGERS. PAIN MEDICATION GIVEN FOR PAIN AT 2017. HAS A POOR APPETITE. WAS CONFUSED ON ASSESSMENT" TALKED ABOUT THOSE BOYS AND THANKSGIVING DINNER" REORIENTATED TO SELF AND PLACE. RIGHT HAND IV THAT INFUSING WELL. LOOKS HEALTHY.IS WITHDRAWN AT TIMES. DID TALK TO HER DAUGHTER JAG. TELE- SHOWS NSR. LUNGS DISM. REPOSITIONED ON RIGHYT SIDE. REFUSED AT 0000. HAS A FEMALE PURWICK CATH THAT HAS YELLOW URINE RETURN. HAS NO SKIN ISSUES. IV FLUIDS INFUSING WELL. SLEEPS WELL THROUGHT THE NIGHT SO FAR. DENIES ANY PAIN AT PRESENT AT 0000. CONT PLAN OF CARE.
[2019-07-30 04:38] VITALS: BP 140/64
[2019-07-30 07:30] VITALS: BP 125/69
[2019-07-30 11:26] VITALS: BP 127/60
[2019-07-30] MEDS ORDERED: PEPCID20 MG PO (13:17)
--- NOTE | 2019-07-30 13:55 | NUR ---
DISCHARGE NOTE: SW reviewed chart and spoke with nursing and attending physician. Pt is medically stable for discharge back to [facility] today. Facility obtained insurance authorization. Wheelchair van transportation scheduled for 1300. Pt had episode of chest pain prior to time of discharge. Transportation rescheduled for 1600 per facility's arrangements. EKG to be done. SW met with pt and family at bedside to provide update. All aware and in agreement with discharge plan. Chart copy completed. production planner faxed discharge orders/summary to [facility]. No additional SW needs identified at this time, but is available to assist should needs arise.
[2019-07-30 15:26] VITALS: BP 147/86
--- NOTE | 2019-07-31 14:22 | EKG ---
[address] [address] ELECTROCARDIOGRAM REPORT Name: CHRISTIANO HIGGINS Room #: [facility] DIS IN M.R.#: [id number] Admission: 07/27/19 Attend Phys: Nicky Ames MD Discharge: 07/30/19 Date of : 50 Report #: [id number] THIS REPORT FOR: //name// [facility] Test Date: 2019-07-30 Test Time: 13:37:00 Pat Name: CHRISTIANO HIGGINS Department: Room: [facility] Gender: F Syrup Maker: [place] ELMORE : 1950 Requested By: Nicky Ames Order Number: [id number] MD: Josep Lane Measurements Intervals [place] Rate: 86 P: 72 MT: 129 QRS: 31 QRSD: 73 T: 54 QT: 357 QTc: 427 Interpretive Statements Sinus rhythm Low voltage, extremity leads Compared to ECG 07/27/2019 13:46:12 No significant changes Electronically Signed On 07-31-2019 14:21:39 PATIENT CASE COORDINATOR by Josep Lane [email or web address] <ELECTRONICALLY SIGNED> By: Josep Lane MD 07/31/[address] MD /EPI
--- NOTE | 2019-08-03 11:46 | EEG ---
[facility] [place] [address] ELECTROENCEPHALOGRAM Name: CHRISTIANO HIGGINS Room #: 362-P [facility] IN M.R.#: [id number] Admission: 07/27/19 Attend Phys: Nicky Ames MD Discharge: 07/30/19 Date of : 50 Report #: [id number] THIS REPORT FOR: //name// [facility] DATE OF SERVICE: 07/28/2019 The patient is being evaluated for altered mental status. EEG was done by placing the electrode by standard 10-20 system of electrode placement. Both sequential and referential montages were used for recording. The patient's EEG is slow in generalized fashion. It is about 8 Hz and 30 microvolts, but it is intermixed with slowing on both sides. Slowing is somewhat more prominent on the right side as compared to the left side. The patient went to sleep and that is associated with bilateral slowing and the vertex sharp waves. Photic stimulation was unremarkable. There were no active epileptiform activity was noticed. IMPRESSION: This patient's EEG is slow in generalized fashion. That is a nonspecific finding, which can occur with encephalopathy, effect of psychotropic medication, dementia, etc. EEG is more slow on the right side as compared to the left side. A right-sided lesion should be excluded in that regard. Thank you very much for this referral. <ELECTRONICALLY SIGNED> By: Conrad Cline MD 08/03/19 1146 1315 1332 Conrad Cline MD /brii
== END 2019-07-30 17:44 | DRG 562 ==
LOC: ER 13:33 → 3W 17:01
PROVIDERS: Emergency Medicine; Nurse Practitioner; ADMIT Hospitalist
DX: S42.302A Unspecified fracture of shaft of humerus, left arm, initial encounter for closed fracture (principal); G92 Toxic encephalopathy; G93.6 Cerebral edema; N17.9 Acute kidney failure, unspecified; N18.4 Chronic kidney disease, stage 4 (severe); I69.354 Hemiplegia and hemiparesis following cerebral infarction affecting left non-dominant side; E87.0 Hyperosmolality and hypernatremia; W18.39XA Other fall on same level, initial encounter; E11.22 Type 2 diabetes mellitus with diabetic chronic kidney disease; I12.9 Hypertensive chronic kidney disease with stage 1 through stage 4 chronic kidney disease, or unspecified chronic kidney disease; E78.5 Hyperlipidemia, unspecified; M54.2 Cervicalgia; G89.29 Other chronic pain; M54.9 Dorsalgia, unspecified; R29.6 Repeated falls; K90.0 Celiac disease; I16.0 Hypertensive urgency; E87.5 Hyperkalemia; R63.4 Abnormal weight loss; F32.9 Major depressive disorder, single episode, unspecified; R51 Headache; E11.42 Type 2 diabetes mellitus with diabetic polyneuropathy; Z79.4 Long term (current) use of insulin; Z79.891 Long term (current) use of opiate analgesic; Y93.89 Activity, other specified; Y92.012 Bathroom of single-family (private) house as the place of occurrence of the external cause; Y99.8 Other external cause status; Z79.899 Other long term (current) drug therapy; Z88.8 Allergy status to other drugs, medicaments and biological substances; Z91.040 Latex allergy status; Z90.10 Acquired absence of unspecified breast and nipple; Z90.89 Acquired absence of other organs; Z90.49 Acquired absence of other specified parts of digestive tract; Z99.3 Dependence on wheelchair; Z87.891 Personal history of nicotine dependence; Z68.26 Body mass index [BMI] 26.0-26.9, adult
CPT/HCPCS: 10879

== ENCOUNTER 2020-02-25 14:23 | Inpatient (IN) | payer OTHER ==
[2020-02-25] VITALS (9 sets, daily range): BP systolic 79–128; BP diastolic 31–59
[~2020-02-25] VITALS: Ht 157.5 cm; Wt 62.7 kg
--- NOTE | ~2020-02-25 | EEG ---
[facility] [place] [address] ELECTROENCEPHALOGRAM Name: CHRISTIANO HIGGINS Room #: 245-P ADM IN M.R.#: [id number] Admission: 02/25/20 Attend Phys: Adan Swan MD Discharge: Date of : 50 Report #: [id number] THIS REPORT FOR: //name// CC: [facility] DATE OF SERVICE: 02/26/2020 This patient is being evaluated for altered mental status. EEG was done by placing the electrode by standard 10-20 system of electrode placement. The patient did not cooperate and there was a lot of artifact. Background activity appeared to be about 5-6 Hz and 30 microvolt. This is symmetrical activity. Photic stimulation is unremarkable. IMPRESSION: Very poor quality EEG because the patient did not cooperate. It appeared to be showing ____ is slow and poorly formed. That is a nonspecific abnormality, which can occur with dementia, encephalopathy, effect of psychotropic medication, etc. Clinical correlation is recommended. By: [id number] 1541 Conrad Cline MD /nt
--- NOTE | ~2020-02-25 | HC ---
[facility] [place] [address] CONSULTATION Name: CHRISTIANO HIGGINS Room #: 245-P ADM IN M.R.#: [id number] Admission: 02/25/20 Attend Phys: Adan Swan MD Discharge: Date of : 50 Report #: [id number] THIS REPORT FOR: cc: Jesika Sequeira MD,Jesika Cline,Conrad Cuellar MD ~ CC: Adan Sequeira DATE OF SERVICE: 02/25/2020 HISTORY OF PRESENT ILLNESS: This is a 69-year-old female patient who was evaluated by me as a stroke protocol. I talked to Dr. Schwab, the Emergency Room physician multiple times. I talked to the daughter numerous times. I talked to the donor floor technician and I talked to Dr. Swan, the radiologist. This patient was admitted with acute altered mental status. She is pretty much out. At one time, she became somewhat more conscious and according to Dr. Schwab, she was able to squeeze with the right hand. On my repeated examination, she did not do anything for me. She did not move anything. REVIEW OF SYSTEMS: Is from the daughter. She tells me that this patient had a large stroke on the right parietal area. She has residual weakness on the left side. On top of that, she had multiple musculoskeletal problems including spine problem. I went back and reviewed all her records here in the computer and in fact she has seen even Neurosurgery here. Her ambulation difficulty is poor. When I talked to her about making decisions about her and the fact that she cannot make medical decisions for herself and she has to do it. She came up with the information that she was not competent to make a decision. Even her baseline indicating that she was developing dementia. She has by record stage IV chronic kidney disease. She had tonsillectomy. She had hypertension. She has a history of breast cancer, diabetes and the records indicate she has been noncompliant. She has a history of celiac disease, right carpal tunnel syndrome, C-spine problem. She was admitted here in 2019 for encephalopathy and she had a pretty eventful course that time and those records indicate that she was admitted to another hospital with encephalopathy. Her history of seizure is very unclear. She has seen Dr. Saldana in the past and that indicate that the patient at one time was on 2 seizure medication. She denied that she ever had a seizure. 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 Presently, she apparently on Depakote, but I am not sure what she is on or whether it is for behavior problem or for seizure. She is on multiple other medications. Her blood sugar here is 135. I do not know what the blood sugar was when this episode happened. This was her relevant 14-point review of system, which was carried out because of the time constraint. PAST MEDICAL HISTORY: Positive for numerous things, looks like she had a big stroke in the past. She has dementia in the past from the history I get. She [facility] [address] [place] [address] CONSULTATION Name: CHRISTIANO HIGGINS Room #: 245-P ADM IN M.R.#: [id number] Admission: 02/25/20 Attend Phys: Adan Swan MD Discharge: Date of : 50 Report #: [id number] has a history of seizures in the past. The significant finding here was that her blood pressure was running low that was a 90 systolic, temperature was 97.3, respiration was only 15, pulse was 98. Blood gases are being done, but are not done yet. Her potassium was a trace high at 5.3. Her BUN and creatinine are high, but that is her baseline. IMPRESSION: This is a pretty complicated case and we spent a lot of time to decide for the diagnosis and I had multiple discussions with the patient's daughter and subsequently with the [id number]-ten. Initial concern was that she may have had another stroke. The problem was that she was admitted with altered mental status in 2019 and as per history in 2018, at that time, she was found to have encephalopathy. Here also, she is obtunded, but I cannot tell about any focal neurological deficit even after examining her multiple times because she does not do anything. So, there was a question whether to give TPA or not. That possibility was discussed with the patient's daughter in detail. After discussing all her options with her, the plan was to vera out for MRI and if MRI shows some new stroke on the diffusion weighted images, then we will bring her back and give TPA. Otherwise, we will not give TPA. I reviewed the diffusion weighted images and subsequently I reviewed with Dr. Swan. We do not find any evidence for acute CVA. I discussed that finding with the patient's daughter. I discussed with her that MRI is not 100% accurate and she still have an option of giving her TPA. She did not want to do that. That is reasonable because she has been admitted with two encephalopathy in the past and we can watch on in that regard. She understands the fact that we can be wrong either way. We can give her TPA and can find later on that it was not stroke and we gave TPA and she bled or we may not give TPA and then may find that ultimately wood turner to be stroke. Prospectively, it is a reasonable decision that we will not give TPA because MRI so far has not shown anything. All these options were discussed with the patient's daughter in detail. I also discussed with Emergency Room physician multiple times. Plan is to admit the patient. I will get an EEG done. Her blood sugar should be watched closely. Her blood gases will be watched closely. Urine shows WBC 16 to 25 and I suspect that may be contributing to her problem and may have even brought the seizure on if it was a seizure or brought the encephalopathy on. Most likely diagnosis in this patient is encephalopathy. She has multiple issues. Daughter initially thought she was a DNR. I told her that if she wants her to be DNR, she needs to tell the admitting doctor. All of it was discussed with the patient's daughter in detail and more than [address] [address] CONSULTATION Name: MARILOUCARRILLOCHRISTIANO Room #: 245-P ADM IN M.R.#: [id number] Admission: 02/25/20 Attend Phys: Adan Swan MD Discharge: Date of : 50 Report #: [id number] minutes of time was spent taking care of this patient and majority of that time was spent counseling and coordinating. By: [id number] Conrad Cline MD /nt
[~2020-02-25 14:23] MED LIST changes: +CLOBETASOL PROP50 G1 TOP; +CYMBALTA60 MG PO; +FOLIC ACID1 MG PO; +GLUCOTROL10 MG PO; +HUMALOG100 UNIT/1 SUBQ; +HYDROCODON-ACE1 EAC7 PO; +KEPPRA 500 MG500 MG PO; +LIPITOR 10 MG10 M1 PO; +LIPITOR40 MG PO; +MOBIC7.5 MG PO; +NORCO 5-325 TA1 EAC1 PO; +PEPCID20 MG PO; +PLAVIX 75 MG TA75 MG PO; +PRINIVIL10 MG PO; +TOPAMAX 100 MG100 MG PO; +TOPAMAX100 MG PO; +TYLENOL325 M1 PO; +VITAMIN D3 COM1 EACH PO; +VITAMIN D3500 UNIT/5 PO
[2020-02-25 14:41] LABS: ABSOLUTE NEUTROPHILS 4.8 thou/uL (1.4-8.2); BASOPHILS 0.7 % (0.0-2.0); EOSINOPHILS 3.9 % (0.0-3.0); HEMATOCRIT 32.1 % (37.0-47.0); HEMOGLOBIN 10.8 gm/dL (12.0-15.0); LYMPHOCYTES 31.1 % (24.0-44.0); MCH 33.5 pg (26.0-34.0); MCHC 33.8 g/dL (28.0-37.0); MCV 99.1 fL (80.0-100.0); MONOCYTES 7.4 % (1.0-8.0); PLATELET COUNT 226 thou/uL (150-400); POLYS 56.9 % (36.0-66.0); RBC 3.24 mil/uL (4.20-5.00); WBC 8.5 thou/uL (4.0-11.0)
[2020-02-25 14:53] LABS: ANION GAP 9 mmol/L (7-16); APTT 30.9 Seconds (24.5-32.8); BUN 36 mg/dL (7-18); CHLORIDE 106 mmol/L (98-107); CO2 26 mmol/L (21-32); CREATININE 1.3 mg/dL (0.6-1.0); GLUCOSE 135 mg/dL (74-106); POTASSIUM 5.3 mmol/L (3.5-5.1); PROTIME 10.2 Seconds (9.3-11.4); SODIUM 141 mmol/L (136-145)
--- NOTE | 2020-02-25 14:57 | NUR ---
Attempted to call [employer] [employer] twice. This RN was disconnected the first time. The second time, voicemail was left to call ER back.
[2020-02-25 15:04] LABS: ALBUMIN 3.5 g/dL (3.4-5.0); SGOT 24 U/L (15-37); SGPT 35 U/L (30-65); TOTAL BILIRUBIN 0.4 mg/dL (0.2-1.0); TOTAL PROTEIN 7.5 g/dL (6.4-8.2); TROPONIN-I <0.06 ng/mL (<0.06)
[2020-02-25 15:20] LABS: URINE BILIRUBIN NEGATIVE (Negative); URINE BLOOD NEGATIVE (Negative); URINE CLARITY CLEAR; URINE COLOR YELLOW; URINE GLUCOSE-RANDOM* NEGATIVE (Negative); URINE KETONES NEGATIVE (Negative); URINE NITRITE-REFLEX NEGATIVE (Negative); URINE PROTEIN (DIPSTICK) NEGATIVE (Negative); URINE SPECIFIC GRAVITY 1.015 (1.005-1.035); URINE UROBILINOGEN 0.2 E.U./dl (0.2-1.0)
[2020-02-25 15:31] LABS: URINE LEUKOCYTES-REFLEX 1+ (Negative)
[2020-02-25] MEDS ORDERED: VITAMIN C500 M2 PO (15:34)
[2020-02-25] MEDS ORDERED: FLEXERIL PO (15:35)
[2020-02-25] MEDS ORDERED: GLUCOTROL10 MG PO (15:36)
[2020-02-25] MEDS ORDERED: UNICOMPLEX M TA1 TA1 PO (15:37)
[2020-02-25] MEDS ORDERED: MIRALAX119 GM PO (15:37)
[2020-02-25] MEDS ORDERED: SENNA8.6 MG PO (15:38)
[2020-02-25] MEDS ORDERED: TYLENOL325 MG PO (15:39)
[2020-02-25] MEDS ORDERED: LIPITOR40 MG PO (15:39)
[2020-02-25] MEDS ORDERED: DEPAKOTE125 MG PO (15:41)
[2020-02-25] MEDS ORDERED: GABAPENTIN600 M1 PO (15:41)
[2020-02-25] MEDS ORDERED: LANTUS SUBQ (15:42)
[2020-02-25] MEDS ORDERED: TIZANIDINE HCL4 M1 PO (15:43)
[2020-02-25 15:44] LABS: BACTERIA-REFLEX 1-9 Few /HPF (None Seen); CASTS None Seen /LPF (None Seen); CRYSTALS None Seen /LPF (None Seen); SQUAMOUS 0-3 Few /LPF (0-3); URINE RBC None Seen /HPF (0-2)
[2020-02-25] MEDS ORDERED: HUMALOG JU100 UNIT/1 SUBQ (15:44)
[2020-02-25 18:10] LABS: BE(vivo) -2.7 mmol/L (-2 to +3); HCO3 23.5 mmol/L (22.0-26.0); PCO2 46.9 mmHg (35.0-45.0); PO2 146.3 mmHg (80.0-100.0); sO2 98.7 % (92.0-98.0)
[2020-02-25 18:14] LABS: pH 7.317 (7.360-7.450)
[2020-02-25 18:27] LABS: AMP/METHAMP Negative (Negative); BARBITURATES Negative (Negative); BENZODIAZEPINES Negative (Negative); COCAINE Negative (Negative); METHADONE Negative (Negative); OPIATES POSITIVE (Negative); PCP Negative (Negative)
[2020-02-26] VITALS (23 sets, daily range): BP systolic 100–149; BP diastolic 35–76
--- NOTE | 2020-02-26 06:16 | NUR ---
PT ARRIVED FROM ER AT 1999 LAST NOC. PT WAS DROWSY UPON ARRIVAL BUT SHE BECAME MORE AWAKE AND ORIENTED TO PERSON PLACE AND SITUATION BUT SHE WAS FUZZY ON TIME AFTER ABOUT 2 HOURS OF BEING ON THE UNIT. RN SPOKE TO PT'S DTR IIN- BARRERA AT 2342 AND UPDATED HER ABOUT PT'S STATUS INCLDUING HER VITAL SIGNS AT THAT TIME. SPOKE TO DR. MONTES DE OCA ABOUT STARTING PT ON VALPROATE AROUND MIDNIGHT. PT BECAME RESTLESS AND AGITATED AT MIDNIGHT WITH INCREASED CONFUSION SAYING SHE WANTED TO GO TO [facility], ATTEMPTED TO TAKE OUT HER MEI, AND GET OUT OF BED. ATTEMPT TO REORIENT PT WAS FUTILE AND DELTA CARTER WAS NOTIFIED. ONETIME ATIVAN DOSE GIVEN. PT RESTED WELL FOR MOST OF THE NOC AND IS NOW ONLY ORIENTED TO HERSELF. SHE COMPLAINED OF PAIN IN HER HIP AND FOOT AND MEDS WERE GIVEN TO ADDRESS PAIN. PT IS STABLE NOW, HOWEVER SHE IS BECOMING MORE RESTLESS THIS AM. WILL CONTINUE TO CLOSELY MONITOR.
--- NOTE | 2020-02-26 09:09 | EKG ---
[facility] [place] [address] ELECTROCARDIOGRAM REPORT Name: CHRISTIANO HIGGINS Room #: 245-P ADM IN M.R.#: [id number] Admission: 02/25/20 Attend Phys: Adan Swan MD Discharge: Date of : 50 Report #: [id number] THIS REPORT FOR: cc: Jesika Sequeira MD, Ramilo MD Lundgren,Chad De Souza MD [facility] ~ THIS REPORT FOR: //name// [facility] ED Test Date: 2020-02-25 Test Time: 14:44:39 Pat Name: CHRISTIANO HIGGINS Department: Room: 245 Gender: F Agile Tester: jean : 1950 Requested By: Guicho Schawb Order Number: [id number] MD: Chad Laird Measurements Intervals [place] Rate: 102 P: 62 GA: 135 QRS: 29 QRSD: 66 T: 55 QT: 322 QTc: 420 Interpretive Statements Sinus tachycardia Low voltage, Compared to ECG 07/30/2019 13:37:00 No significant change was found Electronically Signed On 02-26-2020 9:08:59 CDT by Chad Laird [email or web address] <ELECTRONICALLY SIGNED> By: Chad Laird MD, [facility] 02/26/20 0908 1444 1444 Chad Laird MD, [facility] /EPI
--- NOTE | 2020-02-26 09:38 | NUR ---
ASSESSMENTS AND INTERVENTIONS DOCCUMENTED. PATIENTS' DAUGHTER IN LAW CALLING THIS MORNING TO GET AN UPDATE ON PATIENTS STATUS. UPDATE GIVEN. PATIENT CONFUSED AND AGITATED THIS MORNING BUT RESPONDS TO REDIRECTION.
--- NOTE | 2020-02-26 14:44 | NUR ---
chart review. unable to visit with pt rt reported her confusion. cm called daughter lucia cell number no answer and unable to leave message rt mail box is full. cm called amari on both home and cell number. no answer. cm called spoke with [facility]. pt lives there ltc on [address]. need some assistance with adls. has dme she needs at [facility]. updates to be sent to [facility]. no anticipated dc over the weekend, will cont following as needed for dc needs.
--- NOTE | 2020-02-26 16:00 | NUR ---
PT IS FROM [facility] FAXED CLINICAL UPDATE RECEIVED CONFIRMATION AND LEFT MSG WITH FÉLIX IN ADM. DP TO FOLLOW.
[2020-02-27 00:58] VITALS: BP 159/76
[2020-02-27 04:50] VITALS: BP 148/83
--- NOTE | 2020-02-27 08:27 | NUR ---
ASSESSMENTS CHARTED, MEDS CHARTED GIVEN. PATIENT HAD BEEN DOWN GRADED TO MED/SURG PRIOR TO SHIFT CHANGE. OFF TELEMETRY. RECEIVING MAINTENANCE FLUIDS. FALL PRECAUTIONS IN PLACE DURING SHIFT. DENIED PAIN.
[2020-02-27 09:43] LABS: HEMATOCRIT 34.2 % (37.0-47.0); HEMOGLOBIN 11.3 gm/dL (12.0-15.0); MCV 99.9 fL (80.0-100.0); RBC 3.42 mil/uL (4.20-5.00); RDW 12.9 % (10.5-14.5); WBC 9.1 thou/uL (4.0-11.0)
[2020-02-27 09:58] LABS: ALBUMIN 3.2 g/dL (3.4-5.0); CREATININE 0.9 mg/dL (0.6-1.0); POTASSIUM 5.1 mmol/L (3.5-5.1); TOTAL BILIRUBIN 0.5 mg/dL (0.2-1.0); TOTAL PROTEIN 7.3 g/dL (6.4-8.2)
--- NOTE | 2020-02-28 07:39 | NUR ---
PT WAS TRANSFERRED FROM ICU. VSS. AXOX2. UPON ARRIVAL, PT SAID SHE WAS HUNGRY. TOLERATED INTAKE WELL. NO S/S ACUTE DISTRESS NOTED OR REPORTED AT THIS TIME. CARE TRASNFEERED TO AM RN AT THIS TIME.
[2020-02-28 12:14] LABS: HEMATOCRIT 28.2 % (37.0-47.0); HEMOGLOBIN 9.6 gm/dL (12.0-15.0); MCH 33.8 pg (26.0-34.0); MCHC 34.2 g/dL (28.0-37.0); MCV 98.7 fL (80.0-100.0); RBC 2.85 mil/uL (4.20-5.00); RDW 12.8 % (10.5-14.5); WBC 7.5 thou/uL (4.0-11.0)
[2020-02-28 12:24] LABS: CALCIUM 9.1 mg/dL (8.5-10.1); CREATININE 1.1 mg/dL (0.6-1.0); MAGNESIUM 1.5 mg/dL (1.8-2.4); POTASSIUM 4.5 mmol/L (3.5-5.1)
[2020-02-28 16:20] VITALS: BP 150/80
[2020-02-28 19:15] VITALS: BP 142/66
--- NOTE | 2020-02-28 21:36 | NUR ---
Assumed pt care this am, pt is impulsive and confused. Would refuse meals stating these were not good, insists on going home. INformed MD prn medications given. PT pulled out garnett cat on her own, but is able to voide in the commode.POC followed jorge no sings or verbalizations of distress noted. Endorsed to the night nurse.
--- NOTE | 2020-02-29 04:41 | NUR ---
patient aox1 confused and forgetful. patient had high anxiety, and tearful. called jack spooler tender new order of xanax. pain controlled this shift. fall precaution in place. patient in bed asleep at this time breathing regular and unlaboured.
[2020-02-29 05:54] LABS: HEMATOCRIT 27.8 % (37.0-47.0); HEMOGLOBIN 9.5 gm/dL (12.0-15.0); MCH 33.3 pg (26.0-34.0); RBC 2.84 mil/uL (4.20-5.00); RDW 12.7 % (10.5-14.5); WBC 7.2 thou/uL (4.0-11.0)
[2020-02-29 06:04] LABS: CALCIUM 8.8 mg/dL (8.5-10.1); CREATININE 0.9 mg/dL (0.6-1.0); MAGNESIUM 1.5 mg/dL (1.8-2.4); POTASSIUM 3.9 mmol/L (3.5-5.1)
[2020-02-29] MEDS ORDERED: DEPAKOTE 250MG250 M1 PO (11:01)
--- NOTE | 2020-02-29 11:09 | NUR ---
PT IS FROM [facility] FAXED CLINICAL UPDATE RECEIVED CONFIRMATION AND LEFT MSG WITH FÉLIX/KATHARINA IN ADM THAT PT SHOULD DISCHARGE TODAY.
[2020-02-29] MEDS ORDERED: GLUMETZA500 PO (11:15)
[2020-02-29] MEDS ORDERED: LEVAQUIN 500 M500 M3 PO (11:16)
--- NOTE | 2020-02-29 14:05 | NUR ---
PT AND ST INDICATED THAT PT WOULD BENEFIT FROM [facility] UPON HER RETURN TO [facility]. CLINICAL UPDATES WERE SENT TO THE FACILITY AND THEY HAVE SUBMITTED FOR AUTH FROM [facility]. AUTH WILL LIKELY NO BE RECEIVED THIS DAY. CM NOTIFIED PHYSICIAN HE IS AWARE. CM NOTIFIED PT'S SPOUSE HE IS ALSO AWAER AND AGREEABLE. WE ARE AWAITING [facility] AUTH FOR PT TO RETURN TO [facility] SKILLED AND RECEIVED [facility] UPON HER RETURN. CHART COPY ORDERED. CM TO FOLLOW INDICATED WITH DC PLANNING.
[2020-02-29 15:35] VITALS: BP 125/101
[2020-02-29 20:05] VITALS: BP 153/68
--- NOTE | 2020-02-29 21:08 | NUR ---
ASSUMED PT CARE AT O700. ALERT ORIENT X 1-2. ON ROOM AIR. IV RT AC WITH NS RUNNING AT 100ML/HR. USES BEDSIDE COMMODE. 1 PERSON ASST. NO C/O PAIN. FALL PRECT IN PLACE. CALL LIGHT IN REACH. CODE STATUS IS INTUBATION ONLY. PATIENT IMPULSIVE, SOMETIME TRIES TO GET OUT OF BED AND SAYS SHE NEEDS TO WALK, SHE CANNOT SIT OR LIEDOWN. ROUNDING DONE Q 1HR. SHIFT REPORT GIVEN.
[2020-03-01 03:37] VITALS: BP 155/70
--- NOTE | 2020-03-01 04:11 | NUR ---
ASSUMED PT CARE AT 1925. PT IS ALERT TO SELF AND SOMETIMES CONFUSED. PT IS IMPULSIVE. PT DOES NOT USE CALL LIGHT APPROPRIATELY AND GETS OUT OF BED WHENEVER SHE WANTS TO. PT ATE BREAD AND STATES THAT SHE IS HAVING AN ALLERGIC REACTION. PT HAS A FEW RED BUMPS POPPING UP. BENADRYL WAS ADMINISTERED. PT IS ALSO RECEIVING MEDICINE FOR PAIN. PT STATES THAT SHE IS NOT GETTING ANY RELIEF SO WE GOT A ONE TIME ORDER FOR MORPHINE. PT ALSO COMPLAINED OF PAIN. WILL CONTINUE TO MONITOR.
[2020-03-01 07:14] VITALS: BP 133/67
[2020-03-01 14:48] VITALS: BP 147/67
--- NOTE | 2020-03-01 15:03 | NUR ---
ASSUMED CARE AT 0700. PT IS ALERT TO SELF AND PLACE. BUT SHE APPEARS TO KNOW WHATS GOING ON. SHE IS IMPULSIVE. VSSA/RA. C/O ITCHING, BACK/HIP PAIN AND ANXIETY. TOLERATING DIET. MONITORING BLOOD SUGARS. PIV IN PLACE. PRN PAIN MEDS AND HALDOL GIVEN PRN ORDERED. DIDN'T REALLY HELP PER PT. PT REQ ATIVAN. SAM MARIE, AFTER REC ORDERS. WILL ADMINISTER. FALL PRECAUTIONS IN PLACE. EDUCATED ON CALLING IF NEEDS ARISE. CALL LIGHT IN REACH. WILL MONITOR
--- NOTE | 2020-03-01 15:45 | NUR ---
SPOKE WITH FÉLIX IN ADM AT [facility] SHE RECEIVED AUTH FOR SKILLED STAY. FAXED DC ORDERS/SUMMARY TO FACILITY SPOKE WITH FÉLIX SHE RECEIVED ORDERS AND ARRANGED TRANSPORT BY [facility] FOR 1630 TODAY. LEFT VOICEMAIL ON PT'S CELL PHONE AND HOME PHONE WITH TIME OF TRANSPORT. UNIT NOTIFIED AND CHART COPY PER US. RN TO CALL REPORT [phone].
--- NOTE | 2020-03-01 16:28 | NUR ---
AUTH WAS RECEIVED FOR PT TO DC TO [facility] THIS DAY. CHART COPY MADE. ORDERS AND COVID TEST FAXED. [facility] TRANSPORT ARRAGNED FOR [id number]. PT AND SPOUSE AWARE AND AGREEABLE. REPORT TO BE CALLED TO . NO OTHER CM INTERVETNION INDICATED. CASE CLOSED.
== END 2020-03-01 16:42 | DRG 689 ==
LOC: ER 14:23 → EROBS 19:13 → 4W 19:13 → ICU 19:13 → 4W 02-27 22:14
PROVIDERS: Emergency Medicine; Psychiatry & Neurology Neuromuscular Medicine; ADMIT Internal Medicine; ATTEND Internal Medicine
DX: N30.00 Acute cystitis without hematuria (principal); G92 Toxic encephalopathy; N17.0 Acute kidney failure with tubular necrosis; N18.4 Chronic kidney disease, stage 4 (severe); I69.351 Hemiplegia and hemiparesis following cerebral infarction affecting right dominant side; E78.5 Hyperlipidemia, unspecified; E11.22 Type 2 diabetes mellitus with diabetic chronic kidney disease; Z66 Do not resuscitate; G40.909 Epilepsy, unspecified, not intractable, without status epilepticus; B95.2 Enterococcus as the cause of diseases classified elsewhere; F03.90 Unspecified dementia, unspecified severity, without behavioral disturbance, psychotic disturbance, mood disturbance, and anxiety; I12.9 Hypertensive chronic kidney disease with stage 1 through stage 4 chronic kidney disease, or unspecified chronic kidney disease; Z20.828 Contact with and (suspected) exposure to other viral communicable diseases; Z85.3 Personal history of malignant neoplasm of breast; Z90.10 Acquired absence of unspecified breast and nipple; Z90.49 Acquired absence of other specified parts of digestive tract; Z87.81 Personal history of (healed) traumatic fracture; Z88.8 Allergy status to other drugs, medicaments and biological substances; Z91.040 Latex allergy status; Z87.891 Personal history of nicotine dependence
CPT/HCPCS: 10040; 10047; 10078